=== PATIENT | male | born 1995 | race Caucasian/White ===

== ENCOUNTER 2019-05-02 08:28 | Day surgery (SDC) | payer BC ==
[~2019-05-02 08:28] MED LIST: ACETAMINOPHEN 1,000 MG/100 ML BTL IVPB ONE; RINGERS SOLUTION,LACTATED 1,000 ML IV ONE
[2019-05-02] MEDS ORDERED: GLYCOPYRROLATE 0.2 MG/ML ML IV ONE (08:29)
[2019-05-02] MEDS ORDERED: PROPOFOL 10 MG/ML VIAL IV ONE (08:29)
[2019-05-02] MEDS ORDERED: LIDOCAINE 2% MDV (20MG/ML) 20ML VIAL IV ONE (08:29)
[2019-05-02] MEDS ORDERED: FENTANYL PF 100MCG/2ML VIAL IV ONE (08:29)
[2019-05-02] MEDS ORDERED: MIDAZOLAM HCL 2MG/2ML VIAL IV ONE (08:29)
[2019-05-02] MEDS ORDERED: RINGERS SOLUTION,LACTATED 1,000 ML IV ONE (08:51)
[2019-05-02] MEDS ORDERED: BUPIVACAINE 0.25% W/EPI MPF 30ML VIAL SQ ONE (10:49)
--- NOTE | 2019-05-03 14:30 | Operative Note ---
DATE OF SURGERY: 05/02/2019 SURGEON: Sagar Chicas DO PREOPERATIVE DIAGNOSIS: Right flank mass. POSTOPERATIVE DIAGNOSIS: Right flank mass. OPERATION: Excision of right flank mass measuring 4 cm into the subcu. PROCEDURE: The patient is a 23-year-old male who was brought to the operating room and placed in a supine position. Local with IV sedation was given per the department of anesthesia. The patient was rotated into the left lateral position. His flank was prepped and draped in the usual fashion. The area around the mass was anesthetized with a total of 8 mL of 0.25% Sensorcaine with epinephrine. A 3 cm incision was made. 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 This was dissected free from the surrounding tissue and passed off the field. The wound was closed with 3-0 Vicryl in interrupted fashion and 4-0 Vicryl in a running subcuticular fashion. Steri-Strips were applied. He was taken to the recovery room in stable condition. Final pathology pending. [facility]
== END 2019-05-02 11:30 | disposition home or self-care (01) ==
LOC: SUR 08:28
PROVIDERS: ATTEND Surgery
DX: D17.1 Benign lipomatous neoplasm of skin and subcutaneous tissue of trunk (principal)
CPT/HCPCS: J7120